=== PATIENT | male | born 2000 ===

== ENCOUNTER 2022-12-03 08:01 | Emergency (ER) | payer MEDICAID, SELFPAY ==
[2022-12-03 08:05] VITALS: BP 142/85; PULSE 65; RESP 16; TEMP 36.9; O2SAT 98; BMI 23.2
--- NOTE | 2022-12-03 09:02 | PC.NURSE ---
patient sitting up in bed, respirations equal and unlabored.
--- NOTE | 2022-12-03 09:22 | ED.GENADULT ---
[facility] - General Adult General Chief complaint: General Medical Stated complaint: Chest pain Time Seen by Provider: 12/03/22 09:12 Source: patient, RN notes reviewed and old records reviewed Mode of arrival: ambulatory History of Present Illness HPI narrative: 22-year-old male with no significant past medical history of present to the ED complaining of intermittent left-sided chest pain radiating to left flank x months. Admits pain worsened over night waking him from sleep with his reports pain worse with lifting and eating. Denies known injury/trauma or fall, fever/chills, cough, pedal edema, abdominal pain, nausea/vomiting, recent travel Onset (ago): month(s) Related Data Allergies Allergy/AdvReac Type Severity Reaction Status Date / Time No Known Allergies Allergy Verified 12/03/22 08:07 Review of Systems Review of Systems: Constitutional: No Fever, No Chills, No Fatigue, No Malaise ENT/Mouth: No Ear Pain, No sore throat, No Rhinorrhea, No Swallowing Difficulty Eyes: No Eye Pain, No Swelling, No Redness, No Vision Changes Cardiovascular: + Chest Pain, + SOB, No Edema, No Palpitations Respiratory: No Cough, No Sputum, No Dyspnea Gastrointestinal: No Nausea, No Vomiting, No Diarrhea, No Constipation, No Abdominal pain Genitourinary: No Dysuria, No Hematuria, No Urinary Incontinence/retention, No Flank Pain Musculoskeletal: No joint pain, No Myalgias, No Joint Swelling Skin: No Skin Lesions, No rash Neuro: No Weakness, No Dizziness, No Headache Yes all other systems are reviewed and are negative Constitutional: Constitutional: Reports as per [facility] Past Medical History Attestation statement: The following information was validated with the patient. Source: old records reviewed Social History Social History Advance Directives: No Advance Directives Information Provided: No Physical Exam ED Vital Signs: Vital Signs - 24 hr 12/03/22 08:05 Temperature 98.4 F Pulse Rate 65 Respiratory Rate 16 Blood Pressure 142/85 H Pulse Oximetry 98 Oxygen Delivery Method Room Air BMI result Body Mass Index 23.2 Const General: cooperative, healthy appearing, no acute distress, alert, awake and Physically active Orientation/consciousness: patient oriented x3 Limitations: no limitations HENMT Head: Yes normal to inspection and Yes atraumatic Ears: hearing grossly normal bilaterally General nose exam: Normal external nose present Face and sinus: Yes normal facial exam Eyes General: appearance normal, both eyes and all related structures EOM: EOMs intact bilaterally Neck Neck: Yes normal visual inspection and Yes no meningeal signs Chest Chest palpation & inspection: normal inspection of the chest, no crepitus and no tenderness Resp Effort & Inspection: normal respiratory effort and no respiratory distress Auscultation: clear to auscultation bilaterally, no crackles, no rhonchi and no wheezes Cardio Rate: regular rate Heart sounds: S1 normal heart sound present and S2 normal heart sound present GI Inspection: Yes normal to inspection Palpation (GI): Soft to palpation, nontender, no guarding and not rigid General: Yes no CVA tenderness Back/Spine/Pelvis Back: no CVA tenderness Skin Rashes: no rashes Wounds: no wounds Neuro General: patient oriented x3, tone normal and no meningeal signs Gait exam (Neuro): Normal gait present Extrem General: Yes normal to inspection Course Course Course Narrative: -labs reassuring. Troponin negative. UA not infected XR chest 2V IMPRESSION: No acute cardiopulmonary process. Results discussed with patient including worrisome signs and symptoms and strict return precautions, and when to return to the emergency department. They verbalized understanding and feel safe for discharge at this time. Medical Decision Making Medical Decision Making [facility] Narrative: 22-year-old male with no significant past medical history of present to the ED complaining of intermittent left-sided chest pain radiating to left flank x months. On exam vital signs stable, physical exam as above, lungs CTA, CP not reproducible, no CVAT. No pedal edema. Concern for atypical ACS vs ?Pancreatitis or renal stone vs PNA. Lower suspicion for cholecystitis/cholelithiasis, pyelo, UTI, appendicitis/diverticulitis, or PE Plan: EKG, CXR, labs Please refer to course for remaining clinical decision making, interpretation of labs/imaging results, and discussions with consultants and/or family members. Differential Diagnosis Differential Diagnoses: The differential diagnosis associated with the presentation includes As above Lab Data [facility] Lab Attestation statement: I reviewed the patient's lab results. 12/03/22 10:24 12/03/22 10:24 Labs: Lab Results 12/03/22 12/03/22 12/03/22 Range/Units 10:24 10:24 11:28 WBC 6.8 (4.8-10.8) X10*3/uL RBC 5.71 (4.60-5.80) X10*6/uL Hgb 16.5 (14.0-18.0) g/dl Hct 48.7 (42.0-52.0) % MCV 85.3 (80.0-98.0) fL MCH 28.9 (27.0-33.0) pg MCHC 33.9 (31.0-36.0) g/dl RDW 12.8 (11.0-16.0) % Plt Count 286 (160-400) X10*3/uL MPV 10.6 (9.4-12.4) fL Immature Gran % (Auto) 0.3 (0.0-0.4) % Neut % (Auto) 64.5 (45-73) % Lymph % (Auto) 28.0 (20-40) % [place] % (Auto) 6.3 (2-11) % Eos % (Auto) 0.3 (0-4) % Baso % (Auto) 0.6 (0-2) % Lymph # (Auto) 1.9 (1.2-4.9) X10*3/uL [place] # (Auto) 0.4 (0.1-1.2) X10*3/uL Eos # (Auto) 0.0 (0.0-0.4) X10*3/uL Baso # (Auto) 0.0 (0.0-0.2) X10*3/uL Abs Immat Gran (auto) 0.02 (0.00-0.03) X10*3/uL Absolute Neuts (auto) 4.4 (2.0-8.3) x10*3/uL Absolute Nucleated RBC 0.000 (0.0-0.012) X10*3/uL Nucleated RBC % (auto) 0.0 (0.0-0.2) /100WBC Sodium 140 (135-145) mmol/L Potassium 4.3 (3.3-5.1) mmol/L Chloride 108 (96-108) mmol/L Carbon Dioxide 22 (22-29) mmol/L Anion Gap 14 (12-20) BUN 11 (9-16) mg/dL Creatinine 0.78 (0.5-1.4) mg/dL Estim Creat Clear Calc 122.2 Estimated GFR > 60 Random Glucose 84 (60-115) mg/dL Calcium 10.0 (8.4-10.2) mg/dL Total Bilirubin 1.0 (0.0-1.0) mg/dL Direct Bilirubin 0.2 (0.0-0.5) mg/dL AST 22 (5-37) U/L ALT 15 (0-40) U/L Alkaline Phosphatase 67 (39-117) U/L Troponin I High Sens (<3.5-35.0) ng/L Total Protein 8.3 H (6.5-8.0) g/dL Albumin 4.8 (3.5-5.0) g/dL Lipase 24 (8-78) U/L Urine Color Yellow Urine Appearance Cloudy Urine pH 7.0 (5.0-9.0) Ur Specific [place] 1.020 (1.005-1.025) Urine Protein Negative (Neg-Trace) mg/dL Urine Glucose (UA) Negative (Negative) mg/dL Urine Ketones 15 (Negative) mg/dL Urine Blood Negative (Negative) Urine Nitrite Negative (Negative) Ur Leukocyte Esterase Negative (Negative) 12/03/22 Range/Units 13:05 WBC (4.8-10.8) X10*3/uL RBC (4.60-5.80) X10*6/uL Hgb (14.0-18.0) g/dl Hct (42.0-52.0) % MCV (80.0-98.0) fL MCH (27.0-33.0) pg MCHC (31.0-36.0) g/dl RDW (11.0-16.0) % Plt Count (160-400) X10*3/uL MPV (9.4-12.4) fL Immature Gran % (Auto) (0.0-0.4) % Neut % (Auto) (45-73) % Lymph % (Auto) (20-40) % [place] % (Auto) (2-11) % Eos % (Auto) (0-4) % Baso % (Auto) (0-2) % Lymph # (Auto) (1.2-4.9) X10*3/uL [place] # (Auto) (0.1-1.2) X10*3/uL Eos # (Auto) (0.0-0.4) X10*3/uL Baso # (Auto) (0.0-0.2) X10*3/uL Abs Immat Gran (auto) (0.00-0.03) X10*3/uL Absolute Neuts (auto) (2.0-8.3) x10*3/uL Absolute Nucleated RBC (0.0-0.012) X10*3/uL Nucleated RBC % (auto) (0.0-0.2) /100WBC Sodium (135-145) mmol/L Potassium (3.3-5.1) mmol/L Chloride (96-108) mmol/L Carbon Dioxide (22-29) mmol/L Anion Gap (12-20) BUN (9-16) mg/dL Creatinine (0.5-1.4) mg/dL Estim Creat Clear Calc Estimated GFR Random Glucose (60-115) mg/dL Calcium (8.4-10.2) mg/dL Total Bilirubin (0.0-1.0) mg/dL Direct Bilirubin (0.0-0.5) mg/dL AST (5-37) U/L ALT (0-40) U/L Alkaline Phosphatase (39-117) U/L Troponin I High Sens < 2.7 (<3.5-35.0) ng/L Total Protein (6.5-8.0) g/dL Albumin (3.5-5.0) g/dL Lipase (8-78) U/L Urine Color Urine Appearance Urine pH (5.0-9.0) Ur Specific [place] (1.005-1.025) Urine Protein (Neg-Trace) mg/dL Urine Glucose (UA) (Negative) mg/dL Urine Ketones (Negative) mg/dL Urine Blood (Negative) Urine Nitrite (Negative) Ur Leukocyte Esterase (Negative) Independent Interpretation I performed an independent interpretation of an: EKG (EKG normal sinus rhythm at a rate of 64. Pr interval 134. QTC 383. No STEMI. No previous EKGs to compare) Radiology Impression Discussion of test interpretation with radiology: I have reviewed the radiologist's reading. Independent Historian Clinical information obtained from an independent historian. History obtained from or confirmed by: Friend External Record Review External record reviewed: Inpatient record, Office record, Outpatient record, Prior outpatient labs, Prior outpatient radiology, Primary care record and Outside ED record Tests considered The following testing was considered but not selected: As above Prescription Management I considered prescription management with: Pain Medication Discharge Plan Discharge Clinical Impression: Atypical chest pain Patient Disposition: Home, Self-Care Instructions: Chest Pain (DC) Additional Instructions: Your blood work and chest x-ray were reassuring. Please follow-up with her primary care doctor as well as Cardiology as needed If symptoms persist or worsen, become more constant, shortness breath, weakness, fever return to the ED Take Tylenol/ Motrin at home Referrals: [facility] [place] [facility] Services [Provider Group] Physician,None [Primary Care Provider] - Stand Alone Forms: Work/School Release Interventions: ED Discharge Assessment Last Done: 12/03/22 14:07 Discharge Date/Time: 12/03/22 14:07
== END 2022-12-03 14:07 | disposition home or self-care (01) ==
PROVIDERS: Emergency Provider Emergency Medicine Emergency Medical Services
DX: R07.89 Other chest pain (principal)
CPT/HCPCS: 36415; 71046; 80048; 80076; 81003; 83690; 84484; 85025; 93005; 99283; 99284

== ENCOUNTER 2024-04-08 17:38 | Emergency (ER) | payer OTHER, SELFPAY ==
--- NOTE | ~2024-04-08 | XR_ITS ---
EXAMINATION: XR chest 2V CLINICAL INFORMATION: chest heaviness COMPARISON: 12/03/2022 TECHNIQUE: 2 views of the chest FINDINGS: Clear lungs. No pneumothorax. No pleural effusion. Normal cardiomediastinal silhouette. XR/XR chest 2V IMPRESSION: No acute cardiopulmonary findings. Electronically signed by: Jennifer Cummings MD 04/08/2024 07:59 PM [facility] [place]
[2024-04-08 17:58] VITALS: BP 144/91; PULSE 86; RESP 20; TEMP 36.9; O2SAT 100; BMI 21.8
--- NOTE | 2024-04-08 18:00 | ECG_ITS ---
Test Reason : PALPITATIONS Blood Pressure : / mmHG Vent. Rate : 067 BPM Atrial Rate : 067 BPM P-R Int : 136 ms QRS Dur : 092 ms QT Int : 356 ms P-R-T Axes : 015 058 036 degrees QTc Int : 376 ms Normal sinus rhythm with sinus arrhythmia Normal ECG When compared with ECG of 03-DEC-2022 08:14, No significant change was found Referred By: Qi Watson Electronically Signed By:JALEESA MAGUIRE MD
--- NOTE | 2024-04-08 18:01 | ED_ITS ---
HPI - General Adult General Chief complaint: Arrhythmia/Palpitations Stated complaint: syncope 1pm/palpitations Time Seen by Provider: 04/08/24 23:12 History of Present Illness HPI narrative: Patient is a 23-year-old male was feeling lightheaded upon getting up had a episodes of almost passing out. Sat down then started having tingling sensation in his body also with having palpitation that lasted for few hours. Patient claims that his heart rate was fast and slow. There was no specific trigger. It happened after the episode of almost passing out. It lasted for few hours. It is not associated with any chest pain. Not associated with any diaphoresis. Not associated with any focal weakness. There is no shortness of breath associated with the symptoms. Patient is from home. Denies any recreational drug use. Related Data Allergies Allergy/AdvReac Type Severity Reaction Status Date / Time No Known Allergies Allergy Verified 04/08/24 18:01 Review of Systems 2 Review of Systems: No fever no chills no chest pain or shortness of breath Yes all other systems are reviewed and are negative [facility] Past Medical History Attestation statement: The following information was validated with the patient. Social History Social History Smoked in Last 30 Days: No Use of substances other than those prescribed or required for medical reasons: No Advance Directives: No Advance Directives Information Provided: No Physical Exam ED Vital Signs: Vital Signs - 24 hr 04/08/24 17:58 04/08/24 21:46 04/08/24 23:52 Temperature 98.5 F 97.4 F Pulse Rate 86 57 59 Respiratory Rate 20 16 Blood Pressure 144/91 H 124/74 121/75 Pulse Oximetry 100 98 Oxygen Delivery Method Room Air Room Air 04/08/24 23:52 04/08/24 23:52 Temperature Pulse Rate 59 69 Respiratory Rate Blood Pressure 128/74 122/81 Pulse Oximetry Oxygen Delivery Method BMI result Body Mass Index 21.8 Appearance: Alert. Oriented X3. No acute distress. Eyes: Pupils equal, round and reactive to light. ENT: Pharynx normal. Neck: Normal inspection. Neck supple. No lymph nodes noted. No crepitus CVS: Normal heart rate and rhythm. Pulses normal. Normal S1 and S2 Respiratory: No respiratory distress. Breath sounds normal. No Wheezing. No rales Abdomen: Soft and nontender. No rigidity. No distention. good BS x4 Skin: Skin warm and dry. Normal skin color. Normal skin turgor. Extremities: No lower extremity edema. Neurovascular intact to all extremities. No Lacerations. No Rash Neuro: Oriented X 3. No motor deficit. No sensory deficit. Moving all extermities. No slurred speech Course Course Course Narrative: This is a Rapid Medical Examination (RME) performed by Kan Watson PA-C in triage. Full HPI, ROS, assessment and treatment plan per primary provider in the Main ED. 23 yo male, hx of heart murmur as a child, here for eval of palpitations x5 hours. states his woke him up and he felt a double heart beat . he then got off of the cough to plug in his phone and began to feel a heaviness in his heart and tingling to his entire body. sat back on the couch and believes he lost consciousness as he woke up on the couch in a sweat. his apple watch reported his HR was 167, now normal. EMS evaluated patient however he declined transport to ED. reports continued chest discomfort. 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 Plan: labs, ekg Medications Administered Discontinued Medications Generic Name Dose Route Start Last Admin Trade Name Deandra PRN Reason Stop Dose Admin Acetaminophen 975 mg 04/08/24 23:33 04/08/24 23:38 Acetaminophen 325 Mg Tablet PO 04/08/24 23:34 975 mg ONCE ONE Administration Medical Decision Making Medical Decision Making [facility] Narrative: My interpretation of patient's EKG showed a Sinus heart rate is 70 with significant sinus arrhythmia MA QRS QTC within normal limits is no acute ST segment elevation. My interpretation patient's chest x-ray is grossly negative for pneumonia pneumothorax. Patient is 23 years old. His episodes of palpitation is nonspecific. It is not associated with shortness of breath is not associated with syncope during the episode. He does have a history of anxiety. Patient has a follow-up with his primary physician. Denies any chest pain associated with the symptoms. Denies any leg swelling denies any history of blood clots. Patient is from home. Two sets of cardiac enzymes are negative. Patient's hemoglobin is normal there is no evidence for anemia. Will discharge patient home close follow-up on an outpatient basis will suggest for Differential Diagnosis Differential Diagnoses: The differential diagnosis associated with the presentation includes Palpitation, anxiety, syncope Admission/Observation Consideration of admission/observation: Escalation of care including admission/observation considered Lab Data MDM Lab Attestation statement: I reviewed the patient's lab results. 04/08/24 18:19 04/08/24 18:19 Labs: Lab Results 04/08/24 04/08/24 Range/Units 18:19 20:54 WBC 11.5 H (4.8-10.8) X10*3/uL RBC 5.50 (4.60-5.80) X10*6/uL Hgb 16.3 (14.0-18.0) g/dl Hct 46.4 (42.0-52.0) % MCV 84.4 (80.0-98.0) fL MCH 29.6 (27.0-33.0) pg MCHC 35.1 (31.0-36.0) g/dl RDW 12.2 (11.0-16.0) % Plt Count 259 (160-400) X10*3/uL MPV 10.4 (9.4-12.4) fL Immature Gran % (Auto) 0.3 (0.0-0.4) % Neut % (Auto) 77.2 H (45-73) % Lymph % (Auto) 17.8 L (20-40) % [place] % (Auto) 4.0 (2-11) % Eos % (Auto) 0.3 (0-4) % Baso % (Auto) 0.4 (0-2) % Lymph # (Auto) 2.0 (1.2-4.9) X10*3/uL [place] # (Auto) 0.5 (0.1-1.2) X10*3/uL Eos # (Auto) 0.0 (0.0-0.4) X10*3/uL Baso # (Auto) 0.1 (0.0-0.2) X10*3/uL Abs Immat Gran (auto) 0.04 H (0.00-0.03) X10*3/uL Absolute Neuts (auto) 8.9 H (2.0-8.3) x10*3/uL Absolute Nucleated RBC 0.000 (0.0-0.012) X10*3/uL Nucleated RBC % (auto) 0.0 (0.0-0.2) /100WBC PT 11.7 (10.9-12.4) SEC INR 1.0 (0.9-1.1) Sodium 143 (135-145) mmol/L Potassium 3.8 (3.3-5.1) mmol/L Chloride 108 (96-108) mmol/L Carbon Dioxide 23 (22-29) mmol/L Anion Gap 16 (12-20) BUN 13 (9-16) mg/dL Creatinine 0.75 (0.5-1.4) mg/dL Estim Creat Clear Calc 118.8 Estimated GFR > 60 Random Glucose 117 H (60-115) mg/dL Calcium 10.0 (8.4-10.2) mg/dL Magnesium 2.1 (1.6-2.6) mg/dL Total Bilirubin 0.6 (0.0-1.0) mg/dL AST 23 (5-37) U/L ALT 20 (0-40) U/L Alkaline Phosphatase 72 (39-117) U/L Troponin I High Sens 24.1 D 18.5 (<3.5-35.0) ng/L Total Protein 7.9 (6.5-8.0) g/dL Albumin 4.8 (3.5-5.0) g/dL TSH 1.33 (0.32-4.0) uIU/mL Independent Interpretation I performed an independent interpretation of an: EKG (My interpretation patient's EKG as above.) and Plain X-Ray (My interpretation of patient's chest x-ray is grossly negative) Radiology Impression Discussion of test interpretation with radiology: I have reviewed the radiologist's reading. Discharge Plan Discharge Clinical Impression: Palpitations Patient Disposition: Home, Self-Care Instructions: Heart Palpitations (ED) Referrals: Main Sinclair MD [Physician] - 04/13/24 Print Language: Portuguese
[2024-04-08 18:36] LABS: MANUAL DIFF FLAG NO
[2024-04-08 18:37] LABS: Basophils Absolute Auto 0.1 X10*3/uL (0.0-0.2); Basophils Percent Auto 0.4 % (0-2); Eosinophils Percent Auto 0.3 % (0-4); Hematocrit 46.4 % (42.0-52.0); Hemoglobin 16.3 g/dl (14.0-18.0); Imm Gran Abs Auto 0.04 X10*3/uL (0.00-0.03); Imm Gran Pct Auto 0.3 % (0.0-0.4); Lymphocytes Percent Auto 17.8 % (20-40); Mean Corpuscular HGB Conc 35.1 g/dl (31.0-36.0); Mean Corpuscular Hemoglobin 29.6 pg (27.0-33.0); Mean Corpuscular Volume 84.4 fL (80.0-98.0); Mean Platelet Volume 10.4 fL (9.4-12.4); Monocytes Absolute Auto 0.5 X10*3/uL (0.1-1.2); Neutrophils Absolute Auto 8.9 x10*3/uL (2.0-8.3); Neutrophils Percent Auto 77.2 % (45-73); Platelet Count 259 X10*3/uL (160-400); Red Cell Distribution Width 12.2 % (11.0-16.0); White Blood Count 11.5 X10*3/uL (4.8-10.8)
[2024-04-08 18:44] LABS: Prothrombin Time 11.7 SEC (10.9-12.4)
[2024-04-08 18:53] LABS: Alanine Aminotransferase 20 U/L (0-40); Albumin Level 4.8 g/dL (3.5-5.0); Alkaline Phosphatase 72 U/L (39-117); Anion Gap 16 (12-20); Aspartate Amino Transferase 23 U/L (5-37); Bilirubin Total 0.6 mg/dL (0.0-1.0); Blood Urea Nitrogen 13 mg/dL (9-16); Carbon Dioxide 23 mmol/L (22-29); Chloride 108 mmol/L (96-108); Creatinine Clr Calc Pharmacy 118.8; Estimated Glomerular Filt Rate > 60; Glucose Random 117 mg/dL (60-115); Magnesium 2.1 mg/dL (1.6-2.6); Potassium 3.8 mmol/L (3.3-5.1); Sodium 143 mmol/L (135-145); Total Protein 7.9 g/dL (6.5-8.0)
[2024-04-08 19:00] LABS: Troponin-I High Sensitivity 24.1 ng/L (<3.5-35.0)
[2024-04-08 19:14] LABS: TSH reflex Free T4 1.33 uIU/mL (0.32-4.0)
[2024-04-08 21:18] LABS: Troponin-I High Sensitivity 18.5 ng/L (<3.5-35.0)
[2024-04-08 21:46] VITALS: BP 124/74; PULSE 57; RESP 16; TEMP 36.3; O2SAT 98
[2024-04-08] MEDS: Acetaminophen 325 MG TABLET 975 MG PO (23:38)
[2024-04-08 23:52] VITALS: BP 121/75; BP 122/81; BP 128/74; PULSE 59; PULSE 69
[2024-04-09 00:34] VITALS: BP 121/75; PULSE 59; RESP 16; TEMP 36.3; O2SAT 95
== END 2024-04-09 00:36 | disposition home or self-care (01) ==
PROVIDERS: Physician Assistant Medical; Emergency Provider Emergency Medicine Emergency Medical Services
DX: R00.2 Palpitations (principal)
CPT/HCPCS: 36415; 71046; 80053; 83735; 84443; 84484; 85025; 85610; 93005; 99283; 99285

== ENCOUNTER → 2024-04-08 18:00 | Outpatient (BNV) | payer OTHER, SELFPAY | PROVIDERS: Emergency Provider Emergency Medicine Emergency Medical Services; Visit Provider Internal Medicine Cardiovascular Disease | DX: R00.2 Palpitations (principal) | CPT/HCPCS: 93010 ==